=== PATIENT | male | born 1955 | race Caucasian/White ===

== ENCOUNTER 2017-03-16 07:16 | Emergency (ER) | payer BC ==
[2017-03-16] MEDS ORDERED: Ondansetron 4 MG/2 ML SDV IVPUSH ONE (08:20)
[2017-03-16] MEDS ORDERED: Sodium Chloride 0.9% 1,000 ML IV SCH (08:30)
[2017-03-16] MEDS ORDERED: Iopamidol 612 MG/ML 150 ML Bottle IVPUSH ONE (09:33)
[2017-03-16] MEDS ORDERED: Sodium Chloride 0.9% 10 ML Syringe FLUSH PRN (09:33)
[2017-03-16] MEDS ORDERED: Diatrizoate Meglumine/Diatrizoate Sodium 37% 120 ML Bottle PO ONE (09:33)
[2017-03-16] MEDS ORDERED: Diatrizoate Meglumine/Diatrizoate Sodium 37% 120 ML Bottle ONE (09:41)
--- NOTE | 2017-03-16 10:50 | CT ---
CT abdomen and pelvis Technique: Multiple axial sections were obtained from above the dome of the diaphragm inferiorly through the pubic symphysis. Intravenous and oral and rectal contrast has been given. Comparison: No previous CT abdomen or pelvis exam. Findings: Small portion of the visualized lung bases show nothing acute. Liver shows no focal parenchymal abnormality. Gallbladder shows no calcified gallstones. Spleen appears within normal limits. Adrenal glands show no nodule. Surgical clips are seen from previous left nephrectomy. Right kidney shows no hydronephrosis. Two low-density lesions are seen within the right kidney which have Hounsfield unit measurements of incidental cysts. Largest cyst measures approximately 3.7 cm in size and second cyst measures about 1.2 cm. Right ureter shows no dilatation. Pancreas is within normal limits. Aorta shows no aneurysmal dilatation. No retroperitoneal adenopathy or mesenteric abnormalities are seen. Small fat-containing inguinal hernias are identified bilaterally. No contrast extravasation is seen from the rectum. No findings of rectal perforation. Appendix is seen and is normal. No bowel dilatation is seen. No inflammatory change or free fluid is seen. Delayed images show contrast within the right ureter and bladder. Bone window settings were reviewed which show previous surgery at L5-S1 with spondylolisthesis affixed by transpedicle screws. No osteoblastic areas are seen within the visualized bony structures. Impression: 1. No findings of rectal perforation seen on this exam with no extravasation of contrast that was placed into the rectum. 2. Incidental cysts within the right kidney. Previous left nephrectomy. 3. Other incidental findings as noted above. Nothing acute is seen. Diagnostic code #2
--- NOTE | 2017-03-16 11:19 | EDM.PDOC ---
ED HPI GENERAL MEDICAL PROBLEM - General Chief Complaint: Abdominal Pain Stated Complaint: R SIDE PAIN Time Seen by Provider: 03/16/17 07:59 Source of Information: Reports: Patient, Family (), RN Notes Reviewed History Limitations: Reports: No Limitations - History of Present Illness INITIAL COMMENTS - FREE TEXT/NARRATIVE: The patient states that he underwent a prostate biopsy this past , 2016 at , per Dr. Barakat. He was started on ciprofloxacin 500 mg po BID 2 days prior to his procedure, on 03/10/2017, and completed a five-day course on 03/14/2017. The patient states that this morning around 02:00, he developed a stabbing right lower quadrant abdominal pain. The patient states that the pain is better if he is upright, or if he presses on his right lower quadrant. He reports nausea and vomiting last evening, but denies recent fever, constipation, or urinary symptoms. He states that he had some diarrhea last week, but none since 03/14/2017. No prior similar symptoms. He took Tylenol last night. The patient's last oral solid food was around 19:00 last night, however, he vomited it. His last oral fluid intake was around 23:00 last night. The patient's PCP is Dr. Toribio Summers. Right Abdomen Pain Score (Numeric/FACES): 8 - Related Data Allergies Allergy/AdvReac Type Severity Reaction Status Date / Time hydrocodone Allergy Itching Verified 03/16/17 07:52 Home Meds: Home Meds Sertraline [Zoloft] 50 mg PO DAILY 01/11/14 [History] Losartan [Cozaar] 50 mg PO DAILY 03/16/17 [History] Past Medical History Cardiovascular History: Reports: High Cholesterol, Hypertension Gastrointestinal History: Reports: GERD Endocrine/Metabolic History: Reports: Obesity/BMI 30+ Oncologic (Cancer) History: Reports: Basal Cell Carcinoma (face and leg) - Past Surgical History HEENT Surgical History: Reports: Tonsillectomy Male Surgical History: Reports: Nephrectomy (left, donated to brother) Neurological Surgical History: Reports: Lumbar Spine (L5-S1 fusion) Musculoskeletal Surgical History: Reports: Arthroscopic Procedure (left hip labrum repair) Oncologic Surgical History: Reports: Other (See Below) (Excision of basal cell carcinomas off face and leg) Social & Family History - Tobacco Use Smoking Status *Q: Never Smoker Second Hand Smoke Exposure: No - Alcohol Use Alcohol Use History: Yes Alcohol Use Frequency: Socially - Recreational Drug Use Recreational Drug Use: No - Living Situation & Occupation Living situation: Reports: , with Spouse Occupation: Retired ED ROS GENERAL - Review of Systems Review Of Systems: See Below Constitutional: Reports: No Symptoms HEENT: Reports: No Symptoms Respiratory: Reports: No Symptoms Cardiovascular: Reports: No Symptoms Endocrine: Reports: No Symptoms GI/Abdominal: Reports: No Symptoms : Reports: No Symptoms Musculoskeletal: Reports: No Symptoms Skin: Reports: No Symptoms Neurological: Reports: No Symptoms Psychiatric: Reports: No Symptoms Hematologic/Lymphatic: Reports: No Symptoms Immunologic: Reports: No Symptoms ED EXAM, GI/ABD - Physical Exam Exam: See Below Exam Limited By: No Limitations General Appearance: Alert, WD/WN, No Apparent Distress Eyes: Bilateral: Normal Appearance, EOMI Ears: Normal External Exam, Hearing Grossly Normal Nose: Normal Inspection, No Blood Throat/Mouth: Normal Inspection, Normal Lips, Normal Voice, No Airway Compromise Head: Atraumatic, Normocephalic Neck: Normal Inspection, Full Range of Motion Respiratory/Chest: No Respiratory Distress, Lungs Clear, Normal Breath Sounds, No Accessory Muscle Use Cardiovascular: Normal Peripheral Pulses, Regular Rate, Rhythm, No Gallop, No JVD, No Murmur, No Rub GI/Abdominal Exam: Normal Bowel Sounds, Soft, No Organomegaly, No Distention, No Abnormal Bruit, No Mass, Pelvis Stable, Tender (Mild to moderate, right lower quadrant only. Nontender elsewhere.), Other (Obese) (Male) Exam: Deferred Rectal (Males) Exam: Deferred Back Exam: Normal Inspection, Full Range of Motion. No: CVA Tenderness (L), CVA Tenderness (R) Extremities: Normal Inspection, Normal Range of Motion, No Pedal Edema, Normal Capillary Refill Neurological: Alert, Oriented, Normal Cognition, No Motor/Sensory Deficits Psychiatric: Normal Affect Skin Exam: Warm, Dry, Intact, Normal Color, No Rash Course - Vital Signs Last Recorded V/S: Last Vital Signs Temp 35.9 C 03/16/17 07:49 Pulse 70 03/16/17 07:49 Resp 18 03/16/17 07:49 BP 153/95 H 03/16/17 07:49 Pulse Ox 97 03/16/17 07:49 - Orders/Labs/Meds Labs: Laboratory Tests 03/16/17 03/16/17 03/16/17 Range/Units 08:01 08:30 08:30 WBC 6.12 (4.23-9.07) K/mm3 RBC 4.75 (4.63-6.08) M/mm3 Hgb 14.8 (13.7-17.5) gm/L Hct 43.0 (40.1-51.0) % MCV 90.5 (79.0-92.2) fl MCH 31.2 (25.7-32.2) pg MCHC 34.4 (32.2-35.5) g/dl RDW Std Deviation 43.1 (35.1-43.9) fL Plt Count 217 (163-337) K/mm3 MPV 10.7 (9.4-12.3) fl Neutrophils % (Manual) 50 (40-60) % Band Neutrophils % 0 (0-10) % Lymphocytes % (Manual) 34 (20-40) % Atypical Lymphs % 0 % Monocytes % (Manual) 7 (2-10) % Eosinophils % (Manual) 9 H (0.8-7.0) % Basophils % (Manual) 0 L (0.2-1.2) Platelet Estimate Adequate RBC Morph Comment Normal Sodium 137 (136-145) mEq/L Potassium 4.1 (3.5-5.1) mEq/L Chloride 102 (98-107) mEq/L Carbon Dioxide 26 (21-32) mEq/L Anion Gap 13.1 (5-15) BUN 16 (7-18) mg/dL Creatinine 1.2 (0.7-1.3) mg/dL Est Cr Clr Drug Dosing TNP Estimated GFR (MDRD) > 60 (>60) mL/min BUN/Creatinine Ratio 13.3 L (14-18) Glucose 104 (80-115) mg/dL Calcium 9.1 (8.5-10.1) mg/dL Total Bilirubin 0.7 (0.2-1.0) mg/dL AST 15 (15-37) U/L ALT 22 (16-63) U/L Alkaline Phosphatase 64 (46-116) U/L Total Protein 7.1 (6.4-8.2) g/dl Albumin 3.8 (3.4-5.0) g/dl Globulin 3.3 gm/dL Albumin/Globulin Ratio 1.2 (1-2) Lipase 139 (73-393) U/L Urine Color Yellow (Yellow) Urine Appearance Clear (Clear) Urine pH 6.0 (5.0-8.0) Ur Specific K[place] 1.025 (1.005-1.030) Urine Protein Negative (Negative) Urine Glucose (UA) Negative (Negative) Urine Ketones Negative (Negative) Urine Occult Blood 1+ H (Negative) Urine Nitrite Negative (Negative) Urine Bilirubin Negative (Negative) Urine Urobilinogen 0.2 (0.2-1.0) Ur Leukocyte Esterase Negative (Negative) Urine RBC 5-10 H (0-5) /hpf Urine WBC Not seen (0-5) /hpf Ur Epithelial Cells Not seen (0-5) /hpf Urine Bacteria Not seen (FEW) /hpf Urine Mucus Few (FEW) /hpf Meds: Medications Discontinued Medications Generic Name Dose Route Start Last Admin Trade Name Freq PRN Reason Stop Dose Admin Diatrizoate Meglum/Diatrizoate Sod 90 ml 03/16/17 09:33 03/16/17 10:11 Gastrografin 37% PO 03/16/17 09:34 90 ml ONETIME ONE Administration Diatrizoate Meglum/Diatrizoate Sod 60 ml 03/16/17 09:41 03/16/17 10:11 Gastrografin 37% .XX 03/16/17 09:42 60 ml ONETIME ONE Administration Sodium Chloride 1,000 mls @ 150 mls/hr 03/16/17 08:30 03/16/17 08:32 Normal Saline IV 150 mls/hr ASDIRECTED KEREN Administration Iopamidol 125 ml 03/16/17 09:33 03/16/17 10:11 Isovue-300 (61%) IVPUSH 03/16/17 09:34 125 ml ONETIME ONE Administration Ondansetron HCl 4 mg 03/16/17 08:20 03/16/17 08:33 Zofran IVPUSH 03/16/17 08:21 4 mg ONETIME ONE Administration Sodium Chloride 10 ml 03/16/17 09:33 03/16/17 10:11 Saline Flush FLUSH 10 ml ONETIME PRN Administration IV FLUSH - Re-Assessments/Exams Free Text/Narrative Re-Assessment/Exam: 03/16/17 11:16 CT of the abdomen and pelvis with oral, rectal, and IV contrast is read by Dr. Yip as: 1. No findings of rectal perforation seen on this exam with no extravasation of contrast that was placed into the rectum. 2. Incidental cysts within the right kidney. Previous left nephrectomy. 3. Other incidental findings as noted above. Nothing acute is seen. 03/16/17 11:39 Test results discussed with the patient and his . Today's workup is entirely unremarkable, and does not explain the cause of the patient's pain. I am recommending that he contact his Urologist to discuss his symptoms and today' s test results. Since the patient has only one kidney, I recommended that he stay well hydrated for the next week. Departure - Departure Time of Disposition: 11:40 Disposition: Home, Self-Care 01 Condition: Good Clinical Impression: Lower abdominal pain of unknown etiology, Nausea and vomiting - Discharge Information Instructions: Abdominal Pain, Adult, [id number] Referrals: Toribio Summers Jr, MD [Primary Care Provider] - Gerardo Barakat MD [Ordering Only Provider] - Forms: ED Department Discharge Additional Instructions: You were seen in the emergency room for lower abdominal pain, nausea, and vomiting. Workup in the ER included a CBC, CMP, lipase level, urinalysis, and a CT scan of your abdomen and pelvis with oral, rectal, and IV contrast. Your entire workup was unremarkable, and does not explain the cause of your pain. We recommend that you follow-up with your urologist, Dr. Barakat, at the next available appointment, to discuss your symptoms and today's test results. It is important that you stay well hydrated for the next week. Make sure that your urine is light in color, like lemonade, not darker, like apple juice. If any other problems, please do not hesitate to return to the ER.
== END 2017-03-16 11:51 | disposition home or self-care (01) ==
LOC: JD.ED 07:16
DX: R10.31 Right lower quadrant pain (principal); R11.2 Nausea with vomiting, unspecified; I10 Essential (primary) hypertension; Z88.5 Allergy status to narcotic agent; Z79.899 Other long term (current) drug therapy
CPT/HCPCS: 36415; 74177; 80053; 81001; 83690; 85025; 96361; 96374; 99284; J2405; J7040; J7050; Q9963; Q9967

== ENCOUNTER 2017-10-16 18:59 | Emergency (ER) | payer BC ==
[2017-10-16] MEDS ORDERED: Diphtheria,Pertussis(Acell),Tetanus Vaccine 0.5 ML SDV IM ONE (19:20)
[2017-10-16] MEDS ORDERED: Ibuprofen 600 MG Tab PO ONE (19:21)
[2017-10-16] MEDS ORDERED: Cephalexin 500 MG Cap PO ONE (19:35)
--- NOTE | 2017-10-16 19:42 | EDM.PDOC ---
ED HPI GENERAL MEDICAL PROBLEM - General Chief Complaint: Laceration Stated Complaint: CUT INDEX FINGER ON LEFT HAND Time Seen by Provider: 10/16/17 19:06 Source of Information: Reports: Patient History Limitations: Reports: No Limitations - History of Present Illness INITIAL COMMENTS - FREE TEXT/NARRATIVE: The patient states that he was using a hand-held circular saw around 17:00 this evening, when he accidentally cut the end of his left second finger. He is otherwise uninjured. The patient does not recall when his last tetanus vaccination was. The patient's PCP is Dr. Toribio Summers. Left 2-Index finger Pain Score (Numeric/FACES): 4 - Related Data Allergies Allergy/AdvReac Type Severity Reaction Status Date / Time hydrocodone Allergy Itching Verified 03/16/17 07:52 Home Meds: Home Meds Sertraline [Zoloft] 50 mg PO DAILY 01/11/14 [History] Losartan [Cozaar] 50 mg PO DAILY 03/16/17 [History] Aspirin [Halfprin] 81 mg PO DAILY 10/16/17 [History] Past Medical History Cardiovascular History: Reports: High Cholesterol (former), Hypertension Gastrointestinal History: Reports: GERD (untreated) Oncologic (Cancer) History: Reports: Basal Cell Carcinoma (face & left ankle) - Past Surgical History HEENT Surgical History: Reports: Tonsillectomy Male Surgical History: Reports: Nephrectomy (left - donated to brother 1999) Neurological Surgical History: Reports: Lumbar Spine (L5-S1 fusion) Musculoskeletal Surgical History: Reports: Arthroscopic Procedure (left hip labrum repair) Oncologic Surgical History: Reports: Other (See Below) (Excision of BCC from face and left ankle) Social & Family History - Tobacco Use Smoking Status *Q: Never Smoker - Caffeine Use Caffeine Use: Reports: Soda - Alcohol Use Alcohol Use History: Yes Alcohol Use Frequency: Socially - Recreational Drug Use Recreational Drug Use: No - Living Situation & Occupation Living situation: Reports: , with Spouse Occupation: Retired ED ROS GENERAL - Review of Systems Review Of Systems: ROS reveals no pertinent complaints other than HPI. ED EXAM, SKIN/RASH Exam: See Below Exam Limited By: No Limitations General Appearance: Alert, WD/WN, No Apparent Distress Extremities: Other (There is a jagged laceration to the end of the patient's left second finger. Entire laceration is within the distal phalanx. The laceration does not involve the nail or nailbed. It extends from the ulnar aspect of the finger, extending to the tip. There appears to be loss of skin. Neurovascular status of the finger is intact) Course - Vital Signs Last Recorded V/S: Last Vital Signs Temp 36.7 C 10/16/17 19:14 Pulse 78 10/16/17 19:14 Resp 20 10/16/17 19:14 BP 182/94 H 10/16/17 19:14 Pulse Ox 97 10/16/17 19:14 - Orders/Labs/Meds Orders: Active Orders 24 hr Category Date Time Status Vaccines to be Administered [RC] PER UNIT ROUTINE Care 10/16/17 19:21 Active Meds: Medications Discontinued Medications Generic Name Dose Route Start Last Admin Trade Name Freq PRN Reason Stop Dose Admin Diphtheria/Tetanus/Acell Pertussis 0.5 ml 10/16/17 19:20 Adacel IM 10/16/17 19:21 .ONCE ONE Ibuprofen 600 mg 10/16/17 19:21 Motrin PO 10/16/17 19:22 ONETIME ONE - Re-Assessments/Exams Free Text/Narrative Re-Assessment/Exam: 10/16/17 19:[address] Ruiz, orthopedic surgeon at [facility], at 19 :28. As there is loss of skin, he does not want me to attempt so it tonight. He would like us to have the finger thoroughly washed, then dressed with either Kerlix were Xeroform. We will start the patient on a 1 week course of Keflex, and the patient can follow-up with Dr. Ruiz on 10/19/2017. The above was discussed with the patient, who is agreeable. Since the patient's pharmacy has already closed, we will prescribe the Keflex via [facility]. The patient received a tetanus vaccination during this ED visit. Unfortunately, the patient is allergic to hydrocodone, therefore the only pain relief I can offer is ibuprofen. Departure - Departure Time of Disposition: 19:38 Disposition: Home, Self-Care 01 Condition: Good Clinical Impression: Laceration of left index finger - Discharge Information Referrals: Toribio Summers Jr, MD [Primary Care Provider] - Thierno Ruiz MD [Ordering Only Provider] - Additional Instructions: You were seen in the emergency room after cutting the end of your left index finger with a circular saw. You received a tetanus vaccination in the emergency room. Your case was discussed with the Orthopedic Surgeon Dr. Thierno Ruiz. Your finger has been bandaged. Leave the bandage alone, and do not let it get wet. Try to elevate your finger is much as possible over the weekend, to help minimize swelling. Take [id number] ibuprofen, 3 tablets (600 mg) every 8 hours, with food, as needed for pain. You have been started on the antibiotic Keflex. Take one tablet every 6 hours, as prescribed. Complete a 7 day course, unless instructed otherwise by Dr. Ruiz. Follow-up with Dr. Ruiz this coming 10/19/2017. If any other problems, please do not hesitate to return to the ER. - My Orders Last 24 Hours: My Active Orders 10/16/17 19:21 Vaccines to be Administered [RC] PER UNIT ROUTINE - Assessment/Plan Last 24 Hours: My Active Orders 10/16/17 19:21 Vaccines to be Administered [RC] PER UNIT ROUTINE
== END 2017-10-16 20:10 | disposition home or self-care (01) ==
LOC: JD.ED 18:59
DX: S61.211A Laceration without foreign body of left index finger without damage to nail, initial encounter (principal); E78.00 Pure hypercholesterolemia, unspecified; I10 Essential (primary) hypertension; K21.9 Gastro-esophageal reflux disease without esophagitis; Z23 Encounter for immunization; W27.0XXA Contact with workbench tool, initial encounter; Z88.5 Allergy status to narcotic agent; Z79.82 Long term (current) use of aspirin
CPT/HCPCS: 90471; 90715; 99283; A9270

== ENCOUNTER 2022-01-12 20:14 | Emergency (ER) | payer BC ==
[2022-01-12 21:38] LABS: ESTIMATED GFR 60 mL/min (>60)
[2022-01-12 21:57] LABS: CORONAVIRUS COVID-19 NAA NEGATIVE (NEGATIVE)
[2022-01-12] MEDS ORDERED: Albuterol 6.7 GM Inhaler INH ONE (22:03)
[2022-01-12] MEDS ORDERED: predniSONE 10 MG Tab PO ONE (22:04)
== END 2022-01-12 22:30 | disposition home or self-care (01) ==
LOC: JD.ED 20:14
DX: J40 Bronchitis, not specified as acute or chronic (principal); I10 Essential (primary) hypertension; E78.00 Pure hypercholesterolemia, unspecified; K21.9 Gastro-esophageal reflux disease without esophagitis; E11.9 Type 2 diabetes mellitus without complications; Z20.822 Contact with and (suspected) exposure to COVID-19
CPT/HCPCS: 0241U; 36415; 71045; 80053; 85025; 85379; 86140; 99283; A9270; J7512; 99284